=== PATIENT | female | born 1995 | race Caucasian/White ===

== ENCOUNTER 2019-01-27 17:39 | Emergency (ER) | payer OTHER ==
[2019-01-27 17:55] VITALS: BP 107/59
--- NOTE | 2019-01-27 18:13 | UC ---
Respiratory Complaint HPI - HPI Summary HPI Summary: Ms. Jose Carballo comes in C/O several days of congestion and cough. "It hurts a little to swallow" She can't get any sleep because of the coughing. She denies fever. She had a baby in April and has not had a normal period since which is not unusual for her. She did a home test and it was positive so she saw her OB on Wednesday. They heard the heart beat and scheduled her for U/S suggesting she was probably 4 1/2 to 5 months along. With all the coughing she has had some very mild spotting which she minimizes as no concern saying the same thing happened in her first . - History of Current Complaint Chief Complaint: UCGeneralIllness Stated Complaint: COUGH/CONGESTION/5 MONTHS PREG. SPOTTING Time Seen by Provider: 01/27/19 17:51 Hx Obtained From: Patient Hx Last Menstrual Period: 05/20/14 ?: Yes Onset/Duration: Gradual Onset Timing: Constant Severity Initially: Mild Severity Currently: Mild Pain Intensity: 0 Character: Cough: Productive Aggravating Factors: Nothing Alleviating Factors: Nothing Associated Signs And Symptoms: Positive: Nasal Congestion. 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 Previously Healthy: Yes - Surgical History Surgical History: Yes Surgery Procedure, Year, and Place: TONSILLECTOMY - Social History Alcohol Use: None Substance Use Type: None Smoking Status (MU): Light Every Day Tobacco Smoker Review of Systems All Other Systems Reviewed And Are Negative: Yes Constitutional: Positive: Negative ENT: Positive: Sore Throat - Slight, Nasal Discharge, Sinus Congestion Respiratory: Positive: Cough Physical Exam - Summary Physical Exam Summary: She is nontoxic in appearance. She is congested and coughing. Her vitals are stable. Triage Information Reviewed: Yes Appearance: Well-Appearing Vital Signs: Initial Vital Signs Temp 98.2 F 01/27/19 17:51 Pulse 97 01/27/19 17:51 Resp 16 01/27/19 17:51 BP 107/59 01/27/19 17:51 Pulse Ox 96 01/27/19 17:51 Vital Signs Reviewed: Yes Eye Exam: Normal ENT: Positive: Pharynx normal, Nasal congestion, Nasal drainage, TMs normal Neck exam: Normal Respiratory: Positive: Lungs clear, Normal breath sounds, No respiratory distress, No accessory muscle use. Negative: Respiratory distress Cardiovascular: Positive: RRR Abdomen Description: Positive: Nontender Bowel Sounds: Positive: Present Skin Exam: Normal Respiratory Course/Dx - Course Course Of Treatment: She has a viral URI. I doubt that her spotting is significant but she is likely before 21 weeks and it is somewhat moot. I suggested that she go to the ED and she dismissed my concerns. There's not much that I can do for her and she assures me that she only wants to get some sleep. A short course of tylenol with codeine will not hurt the baby however I don't know how effective it will be with the subutex. She is not concerned about the addiction issues saying that codeine is not a problem for her. Her S.O. is here and agrees that it will be no problem. - Differential Dx/Diagnosis Provider Diagnosis: URI (upper respiratory infection) Discharge ED - Sign-Out/Discharge Documenting (check all that apply): Patient Departure All imaging exams completed and their final reports reviewed: No Studies - Discharge Plan Condition: Stable Disposition: HOME Patient Education Materials: Upper Respiratory Infection (ED) Referrals: Ilene Salinas MD [Primary Care Provider] - Additional Instructions: If you have any additional bleeding, please go to the ED immediately. - Billing Disposition and Condition Condition: STABLE Disposition: Home
== END 2019-01-27 18:27 | disposition home or self-care (01) ==
LOC: UCCORT 17:39
DX: J06.9 Acute upper respiratory infection, unspecified (principal); F17.290 Nicotine dependence, other tobacco product, uncomplicated
CPT/HCPCS: 99212; G0463

== ENCOUNTER 2021-12-17 02:57 | Inpatient (IN) ==
[2021-12-17] MEDS ORDERED: Buffered Lidocaine 1% SYRIN 1 ml INTRADERM ONE (03:35)
[2021-12-17] MEDS ORDERED: Lactated Ringers 1000 ml BAG 1,000 ML IV ONE (03:35)
[2021-12-17] MEDS ORDERED: Glycerin ADULT 2.4 gm SUPP PR PRN (03:39)
[2021-12-17] MEDS ORDERED: Witch Hazel PAD JAR TOPICAL PRN (03:39)
[2021-12-17] MEDS ORDERED: Dibucaine 1% OINT 28.35 GM TUBE PR PRN (03:39)
[2021-12-17] MEDS ORDERED: Oxytocin in LR 20,000 MILLI.UNIT/1,000 ML BAG IV SCH (03:45)
[2021-12-17] MEDS ORDERED: Lactated Ringers 1000 ml BAG 1,000 ML IV SCH ×2 (04:00)
[2021-12-17] MEDS ORDERED: Oxytocin 10 UNITS/ML 1 ML VIAL ONE (06:31)
[2021-12-17 18:47] LABS: Urine Benzodiazepine Screen None Detected (None Detect); Urine Cannabinoids Screen None Detected (None Detect); Urine Opiates Screen None Detected (None Detect)
[2021-12-18] MEDS ORDERED: Nicotine GUM 4MG FRUIT FLAVOR PO PRN (08:13)
[2021-12-18] MEDS ORDERED: Ondansetron ODT 4 mg TAB 4 MG TAB SL PRN (08:33)
[2021-12-18] MEDS ORDERED: Nicotine PATCH 21 MG/24 HR PATCH TRANSDERM SCH (09:00)
[2021-12-18 11:15] VITALS: BP 108/52
== END 2021-12-18 12:53 | disposition home or self-care (01) | DRG 560 ==
LOC: MCHOBOUT 02:57 → MCHOB 03:00
PROVIDERS: ADMIT Obstetrics & Gynecology; ATTEND Obstetrics & Gynecology